=== PATIENT | female | born 1935 | race Caucasian/White ===

== ENCOUNTER 2017-07-06 22:27 | Inpatient (IN) | payer OTHER ==
[~2017-07-06] VITALS: Ht 152.4 cm; Wt 68.0 kg
[~2017-07-06 22:27] MED LIST: ANTI-FUNGAL141 GM TP; Erythromycin Ophth O RIGHT EYE; LITE COAT ASPI325 M1 PO; LIVALO1 MG PO; Levaquin PO; SYNTHROID88 MCG PO; predniSONE PO
[2017-07-06 23:39] LABS: INTER. NORMALIZED RATIO 1.1; PROTHROMBIN TIME 11.8 SEC (10.2-12.9)
[2017-07-06 23:42] LABS: PTT 25.4 SEC (25-37)
[2017-07-07 00:11] LABS: HEMATOCRIT 33.6 % (36.0-46.0); MCH 29.3 PG (29.0-34.0); MCV 88.7 FL (83-99); MEAN PLAT.VOLUME 11.3 uM^3 (9.5-12.4); PLATELET COUNT 167 K/uL (156-360); RBC DIS.WIDTH-CV 14.8 % (11.8-14.6); RED BLOOD COUNT 3.79 M/uL (3.80-5.20)
[2017-07-07 00:18] LABS: CHLORIDE 108 mEq/L (99-109); POTASSIUM 3.7 mEq/L (3.7-5.4); SODIUM 138 mEq/L (136-147)
[2017-07-07 00:20] LABS: GLUCOSE 167 mg/dL (70-99)
[2017-07-07 00:22] LABS: ANION GAP 10 MEQ/L (2-14)
[2017-07-07 00:24] LABS: GFR ESTIMATE (CALCULATED) > 59 mL/min/
[2017-07-07 00:25] LABS: UREA NITROGEN (BUN) 14 mg/dL (9-23)
[2017-07-07] MEDS ORDERED: PROLIA60 MG/1 ML SC (01:08)
[2017-07-07 04:13] VITALS: BP 186/83
[2017-07-07 09:01] VITALS: BP 163/79
[2017-07-07 12:32] VITALS: BP 162/79
[2017-07-07 19:30] VITALS: BP 142/65
[2017-07-07 19:30] LABS: TROP-I INTERPRETATION NEGATIVE; TROPONIN-I 0.02 ng/mL (0.0-0.30)
[2017-07-07 23:38] VITALS: BP 135/79
[2017-07-08 03:34] VITALS: BP 151/70
[2017-07-08 07:01] LABS: INTER. NORMALIZED RATIO 1.3
[2017-07-08 07:22] LABS: ANION GAP 10 MEQ/L (2-14); CHLORIDE 109 MEQ/L (99-109); GFR ESTIMATE (CALCULATED) > 59 mL/min/; GLUCOSE 135 mg/dL (70-99); POTASSIUM 3.8 MEQ/L (3.7-5.4); SAMPLE HEMOLYSIS CHECK 0; SAMPLE ICTERIC CHECK 0; SAMPLE LIPEMIA CHECK 0; SODIUM 142 MEQ/L (136-147); UREA NITROGEN (BUN) 11 mg/dL (9-23)
[2017-07-08 07:24] LABS: TROP-I INTERPRETATION NEGATIVE; TROPONIN-I 0.02 ng/mL (0.0-0.30)
[2017-07-08 07:46] VITALS: BP 177/79
[2017-07-08 07:49] LABS: EOSINOPHIL (%) 0.7 % (0-5); HEMATOCRIT 29.2 % (36.0-46.0); IMMATURE GRANULOCYTE (%) 0.7 % (0.0-0.7); INSTRUMENT ABS NEUTROPHIL CT 2.5 K/uL; LYMPHOCYTE COUNT 0.7 K/uL (1.0-2.8); MCH 30.8 PG (29.0-34.0); MCHC 32.9 G/DL (30.0-36.0); MEAN PLAT.VOLUME 12.3 uM^3 (9.5-12.4); MONOCYTE COUNT 0.9 K/uL (0-0.8); NEUTROPHIL (%) 59.9 % (45-76); NEUTROPHIL COUNT 2.5 K/uL (1.8-6.4); PLATELET COUNT 127 K/uL (156-360); RBC DIS.WIDTH-CV 15.2 % (11.8-14.6); RBC DIS.WIDTH-SD 51.6 % (39-53); RED BLOOD COUNT 3.12 M/uL (3.80-5.20); WHITE BLOOD COUNT 4.1 K/uL (4.1-10.2)
[2017-07-08 07:58] LABS: MCV 93.6 FL (83-99)
[2017-07-08 11:04] VITALS: BP 168/90
[2017-07-08 16:05] VITALS: BP 166/75
[2017-07-08 19:48] VITALS: BP 184/80
[2017-07-08 23:14] VITALS: BP 140/65
[2017-07-09 04:09] VITALS: BP 153/70
[2017-07-09 06:55] LABS: HEMATOCRIT 29.5 % (36.0-46.0); MCH 29.6 PG (29.0-34.0); MCHC 32.9 G/DL (30.0-36.0); MCV 89.9 FL (83-99); MEAN PLAT.VOLUME 12.2 uM^3 (9.5-12.4); PLATELET COUNT 137 K/uL (156-360); RBC DIS.WIDTH-CV 14.8 % (11.8-14.6); RBC DIS.WIDTH-SD 49.1 % (39-53); RED BLOOD COUNT 3.28 M/uL (3.80-5.20)
[2017-07-09 07:17] LABS: ANION GAP 12 MEQ/L (2-14); CHLORIDE 103 MEQ/L (99-109); GFR ESTIMATE (CALCULATED) > 59 mL/min/; GLUCOSE 158 mg/dL (70-99); POTASSIUM 3.4 MEQ/L (3.7-5.4); SAMPLE HEMOLYSIS CHECK 0; SAMPLE ICTERIC CHECK 0; SAMPLE LIPEMIA CHECK 0; SODIUM 139 MEQ/L (136-147); UREA NITROGEN (BUN) 9 mg/dL (9-23)
[2017-07-09 07:36] LABS: ABS NEUTROPHIL COUNT 2.4; ATYPICAL LYMPHOCYTE 1.8 %; BAND NEUTROPHILS 0.9 % (0-8.0); BASOPHILS 0.9 %; EOSINOPHIL ABS CT 0; EOSINOPHILS 0.9 % (0-5.0); INSTRUMENT ABS NEUTROPHIL CT 1.9 K/uL; LYMPHOCYTES 14.9 % (15.0-45.0); NUCLEATED RBC'S 0.9; PLAT.SUFFICIENCY DECREASED; SEG.NEUTROPHILS 59.6 % (46.0-76.0); SMUDGE CELLS 3.5; TEAR DROP CELLS 1+
[2017-07-09 08:07] VITALS: BP 125/64
[2017-07-09 12:11] VITALS: BP 116/54
[2017-07-09 17:22] VITALS: BP 134/59
[2017-07-09 19:12] VITALS: BP 139/64
[2017-07-09 23:21] VITALS: BP 164/84
[2017-07-10 03:31] VITALS: BP 138/78
[2017-07-10 07:48] VITALS: BP 157/69
[2017-07-10] MEDS ORDERED: TRAMADOL HCL50 MG PO (14:57)
[2017-07-10] MEDS ORDERED: DILTIAZEM 24HR180 MG PO (15:02)
[2017-07-10] MEDS ORDERED: XARELTO15 MG PO (15:02)
[2017-07-10 15:37] VITALS: BP 118/59
[2017-07-10] MEDS ORDERED: XARELTO10 MG PO (15:38)
== END 2017-07-10 17:59 | DRG 482 ==
LOC: EME → EDBD 22:27 → EDOF 07-07 02:43 → 3EAST 07-07 02:43 → ENRESERV 07-07 02:51 → 3EAST 07-07 04:02
PROVIDERS: Emergency Medicine; Family Medicine; Orthopaedic Surgery
PROC: 0QS734Z Reposition Left Upper Femur with Internal Fixation Device, Percutaneous Approach (ICD-10-PCS; principal; 2017-07-07)
DX: S72.142A Displaced intertrochanteric fracture of left femur, initial encounter for closed fracture (principal); W01.0XXA Fall on same level from slipping, tripping and stumbling without subsequent striking against object, initial encounter; I48.91 Unspecified atrial fibrillation; E87.6 Hypokalemia; I10 Essential (primary) hypertension; E78.5 Hyperlipidemia, unspecified; R73.9 Hyperglycemia, unspecified; E03.9 Hypothyroidism, unspecified; J45.909 Unspecified asthma, uncomplicated; M81.0 Age-related osteoporosis without current pathological fracture; Y92.008 Other place in unspecified non-institutional (private) residence as the place of occurrence of the external cause; Z86.73 Personal history of transient ischemic attack (TIA), and cerebral infarction without residual deficits; Z90.710 Acquired absence of both cervix and uterus; Z79.82 Long term (current) use of aspirin
CPT/HCPCS: 71010; 73502; 73552; 76000; 80048; 80048 91; 84484; 85025; 85027; 85610; 85730; 86850; 86900; 86901; 93005; 93306; 94799; 97530 GO; 97530 GP; 99281; 99285; C1713; J0690; J1885; J2250; J2405; J3010; J7030

== ENCOUNTER 2017-11-27 08:11 | Inpatient (IN) | payer OTHER ==
[~2017-11-27] VITALS: Ht 157.5 cm; Wt 63.3 kg
[~2017-11-27 08:11] MED LIST changes: +ASPIRIN EC325 MG PO; +DILTIAZEM 24HR180 MG PO; -LITE COAT ASPI325 M1 PO; +PROLIA60 MG/1 ML SC; +SYNTHROID100 MCG PO; -SYNTHROID88 MCG PO; +TRAMADOL HCL50 MG PO; +XARELTO10 MG PO; +XARELTO15 MG PO
[2017-11-27 08:56] LABS: BASOPHIL (%) 0.4 % (0-1); EOSINOPHIL (%) 1.2 % (0-5); HEMATOCRIT 35.2 % (36.0-46.0); HEMOGLOBIN 11.7 G/DL (11.9-15.5); IMMATURE GRANULOCYTE (%) 0.8 % (0.0-0.7); LYMPHOCYTE (%) 38.5 % (15-42); MCH 29.7 PG (29.0-34.0); MCHC 33.2 G/DL (30.0-36.0); MCV 89.3 FL (83-99); MONOCYTE (%) 24.9 % (3-12); MONOCYTE COUNT 0.6 K/uL (0-0.8); NEUTROPHIL (%) 34.2 % (45-76); NEUTROPHIL COUNT 0.9 K/uL (1.8-6.4); PLATELET COUNT 180 K/uL (156-360); RBC DIS.WIDTH-CV 14.8 % (11.8-14.6); RBC DIS.WIDTH-SD 48.3 % (39-53); RED BLOOD COUNT 3.94 M/uL (3.80-5.20); WHITE BLOOD COUNT 2.6 K/uL (4.1-10.2)
[2017-11-27 09:07] LABS: CHLORIDE 104 mEq/L (99-109); SODIUM 140 mEq/L (136-147)
[2017-11-27 09:09] LABS: GLUCOSE 139 mg/dL (70-99)
[2017-11-27 09:13] LABS: CREATININE 0.7 mg/dL (0.6-1.3); GFR ESTIMATE (CALCULATED) > 59 mL/min/; UREA NITROGEN (BUN) 12 mg/dL (9-23)
[2017-11-27] MEDS ORDERED: ALEVE220 MG PO (15:40)
[2017-11-27] MEDS ORDERED: ALLEGRA ALLERG180 MG PO (15:40)
[2017-11-27 22:01] VITALS: BP 150/71
[2017-11-27 23:34] VITALS: BP 154/66
[2017-11-28 04:58] VITALS: BP 187/74
[2017-11-28 05:30] VITALS: BP 164/76
[2017-11-28 08:05] VITALS: BP 130/58
[2017-11-28 13:36] LABS: HEMATOCRIT 34.2 % (36.0-46.0); HEMOGLOBIN 11.2 G/DL (11.9-15.5); MCH 29.5 PG (29.0-34.0); MCHC 32.7 G/DL (30.0-36.0); RBC DIS.WIDTH-CV 14.8 % (11.8-14.6); RBC DIS.WIDTH-SD 49.5 % (39-53); WHITE BLOOD COUNT 8.5 K/uL (4.1-10.2)
[2017-11-28 14:08] LABS: PLAT.SUFFICIENCY ADEQUATE; PLATELET COUNT 218 K/uL (156-360)
[2017-11-28 15:35] VITALS: BP 131/79
[2017-11-28 19:25] VITALS: BP 136/63
[2017-11-28 23:52] VITALS: BP 132/63
[2017-11-29 04:18] VITALS: BP 139/64
[2017-11-29 06:30] LABS: CHLORIDE 103 MEQ/L (99-109); CREATININE 0.7 MG/DL (0.6-1.3); GFR ESTIMATE (CALCULATED) > 59 mL/min/; POTASSIUM 3.9 MEQ/L (3.7-5.4); SODIUM 137 MEQ/L (136-147); UREA NITROGEN (BUN) 15 mg/dL (9-23)
[2017-11-29 06:40] LABS: GLUCOSE 266 mg/dL (70-99)
[2017-11-29 07:23] VITALS: BP 129/60
[2017-11-29 11:31] VITALS: BP 120/58
[2017-11-29 14:23] LABS: HEMATOCRIT 27.6 % (36.0-46.0); HEMOGLOBIN 9.4 G/DL (11.9-15.5); MCV 87.6 FL (83-99)
[2017-11-29 19:17] VITALS: BP 131/61
[2017-11-29 23:18] VITALS: BP 154/67
[2017-11-30 05:51] LABS: BASOPHIL (%) 0 % (0-1); EOSINOPHIL (%) 0 % (0-5); HEMATOCRIT 23.9 % (36.0-46.0); HEMOGLOBIN 8.1 G/DL (11.9-15.5); IMMATURE GRANULOCYTE (%) 1.5 % (0.0-0.7); LYMPHOCYTE (%) 13.5 % (15-42); MCH 29.3 PG (29.0-34.0); MCHC 33.9 G/DL (30.0-36.0); MCV 86.6 FL (83-99); MONOCYTE (%) 24.8 % (3-12); MONOCYTE COUNT 1.9 K/uL (0-0.8); NEUTROPHIL (%) 60.2 % (45-76); NEUTROPHIL COUNT 4.5 K/uL (1.8-6.4); NRBC (%) 0.3 /100 WBC (0-0); PLATELET COUNT 178 K/uL (156-360); RBC DIS.WIDTH-CV 14.9 % (11.8-14.6); RBC DIS.WIDTH-SD 47.3 % (39-53); WHITE BLOOD COUNT 7.5 K/uL (4.1-10.2)
[2017-11-30 06:02] LABS: RED BLOOD COUNT 2.76 M/uL (3.80-5.20)
[2017-11-30 06:13] LABS: CHLORIDE 103 MEQ/L (99-109); CREATININE 0.7 MG/DL (0.6-1.3); GFR ESTIMATE (CALCULATED) > 59 mL/min/; GLUCOSE 188 mg/dL (70-99); POTASSIUM 4.1 MEQ/L (3.7-5.4); SODIUM 138 MEQ/L (136-147); UREA NITROGEN (BUN) 17 mg/dL (9-23)
[2017-11-30 07:59] VITALS: BP 135/61
[2017-11-30 11:55] VITALS: BP 124/60
[2017-11-30] MEDS ORDERED: DILTIAZEM 24HR240 MG PO (12:44)
[2017-11-30] MEDS ORDERED: XARELTO15 MG PO (12:46)
[2017-11-30] MEDS ORDERED: OYSTER SHELL 51 EACH PO (12:47)
== END 2017-11-30 14:31 | DRG 470 ==
LOC: EME 08:11 → EDOF 15:00 → 3EAST 15:00 → ENRESERV 15:34 → 3EAST 21:26
PROVIDERS: Emergency Medicine; Family Medicine; Orthopaedic Surgery
PROC: 0SRB02A Replacement of Left Hip Joint with Metal on Polyethylene Synthetic Substitute, Uncemented, Open Approach (ICD-10-PCS; principal; 2017-11-27)
DX: S72.142K Displaced intertrochanteric fracture of left femur, subsequent encounter for closed fracture with nonunion (principal); I48.2 Chronic atrial fibrillation; I10 Essential (primary) hypertension; R73.9 Hyperglycemia, unspecified; E78.5 Hyperlipidemia, unspecified; M81.0 Age-related osteoporosis without current pathological fracture; E83.51 Hypocalcemia; E03.9 Hypothyroidism, unspecified; K59.00 Constipation, unspecified; D64.9 Anemia, unspecified; Z85.850 Personal history of malignant neoplasm of thyroid; J45.909 Unspecified asthma, uncomplicated
CPT/HCPCS: 71045; 73501; 73502; 73552; 80048; 82330; 82948; 85014; 85018; 85025; 85027; 85652; 86140; 86850; 86900; 86901; 93005; 99281; 99285; C1713; C1776; J0330; J0690; J1100; J1170; J1650; J1815; J2405; J3010

== ENCOUNTER → 2017-12-20 | Outpatient (CLI) | payer OTHER ==
[~2017-12-20] MED LIST changes: +ALEVE220 MG PO; +ALLEGRA ALLERG180 MG PO; +DILTIAZEM 24HR240 MG PO; +OYSTER SHELL 51 EACH PO
== END | disposition home or self-care (01) ==
LOC: RAD 08:29
DX: N28.89 Other specified disorders of kidney and ureter (principal); M47.899 Other spondylosis, site unspecified; I70.90 Unspecified atherosclerosis; R93.5 Abnormal findings on diagnostic imaging of other abdominal regions, including retroperitoneum; Z87.19 Personal history of other diseases of the digestive system
CPT/HCPCS: 74160

== ENCOUNTER 2018-03-23 20:47 | Inpatient (IN) | payer OTHER ==
[~2018-03-23] VITALS: Ht 152.4 cm; Wt 60.0 kg
[~2018-03-23 20:47] MED LIST changes: +XARELTO20 MG PO
[2018-03-24] MEDS ORDERED: CIPRO250 MG PO (06:01)
[2018-03-24 06:21] VITALS: BP 132/68
[2018-03-24] MEDS ORDERED: DOCUSATE SODIU100 MG PO (12:04)
[2018-03-24] MEDS ORDERED: ENDOCET 5-3251 EACH PO (12:04)
[2018-03-24] MEDS ORDERED: SENNA LAX8.6 MG PO (12:04)
[2018-03-24 14:04] LABS: HEMATOCRIT 32.4 % (36.0-46.0); HEMOGLOBIN 10.1 G/DL (11.9-15.5); MCHC 31.2 G/DL (30.0-36.0); MCV 83.3 FL (83-99); PLATELET COUNT 268 K/uL (156-360); RBC DIS.WIDTH-CV 16.7 % (11.8-14.6); RBC DIS.WIDTH-SD 50.6 % (39-53); RED BLOOD COUNT 3.89 M/uL (3.80-5.20); WHITE BLOOD COUNT 4.8 K/uL (4.1-10.2)
[2018-03-24 14:39] LABS: CHLORIDE 102 MEQ/L (99-109); CREATININE 0.9 MG/DL (0.6-1.3); GFR ESTIMATE (CALCULATED) > 59 mL/min/; GLUCOSE 227 mg/dL (70-99); POTASSIUM 4.7 MEQ/L (3.7-5.4); SODIUM 136 MEQ/L (136-147); UREA NITROGEN (BUN) 16 mg/dL (9-23)
[2018-03-24 15:02] VITALS: BP 175/80
[2018-03-24 21:23] VITALS: BP 142/69
[2018-03-25 04:33] VITALS: BP 149/66
[2018-03-25 05:52] LABS: HEMOGLOBIN 10.7 G/DL (11.9-15.5); MCH 25.7 PG (29.0-34.0); MCHC 31.5 G/DL (30.0-36.0); MCV 81.5 FL (83-99); NRBC (%) 0.3 /100 WBC (0-0); RBC DIS.WIDTH-CV 16.6 % (11.8-14.6); RBC DIS.WIDTH-SD 49.3 % (39-53); RED BLOOD COUNT 4.17 M/uL (3.80-5.20); WHITE BLOOD COUNT 7.2 K/uL (4.1-10.2)
[2018-03-25 06:19] LABS: CHLORIDE 98 MEQ/L (99-109); GFR ESTIMATE (CALCULATED) 57 mL/min/; GLUCOSE 168 mg/dL (70-99); POTASSIUM 4.7 MEQ/L (3.7-5.4); SODIUM 135 MEQ/L (136-147); UREA NITROGEN (BUN) 15 mg/dL (9-23)
[2018-03-25 06:49] LABS: PLATELET CLUMPS PRESENT - PLATELET COUNT APPEARS ADQ.; PLATELET COUNT UNABLE TO REPORT K/uL (156-360)
[2018-03-25 07:39] VITALS: BP 134/62
[2018-03-25 11:38] VITALS: BP 136/62
[2018-03-25 15:24] VITALS: BP 138/62
[2018-03-25 20:49] VITALS: BP 147/67
[2018-03-25 21:37] VITALS: BP 138/78
[2018-03-26 00:33] VITALS: BP 160/72
[2018-03-26 04:01] VITALS: BP 143/65
[2018-03-26 06:01] LABS: MCH 25.8 PG (29.0-34.0); MCHC 32.1 G/DL (30.0-36.0); MCV 80.2 FL (83-99); PLATELET COUNT 240 K/uL (156-360); RBC DIS.WIDTH-CV 16.6 % (11.8-14.6); RBC DIS.WIDTH-SD 48.4 % (39-53); RED BLOOD COUNT 3.49 M/uL (3.80-5.20)
[2018-03-26 06:55] LABS: CHLORIDE 103 MEQ/L (99-109); GFR ESTIMATE (CALCULATED) 57 mL/min/; POTASSIUM 4.5 MEQ/L (3.7-5.4); SODIUM 141 MEQ/L (136-147); UREA NITROGEN (BUN) 13 mg/dL (9-23)
[2018-03-26 06:59] LABS: GLUCOSE 117 mg/dL (70-99)
[2018-03-26 07:16] VITALS: BP 152/70
[2018-03-26 10:55] VITALS: BP 139/63
[2018-03-26 16:32] VITALS: BP 138/68
[2018-03-26 23:14] VITALS: BP 154/67
[2018-03-27 06:09] LABS: HEMATOCRIT 26.1 % (36.0-46.0); HEMOGLOBIN 8.4 G/DL (11.9-15.5); MCH 25.8 PG (29.0-34.0); MCHC 32.2 G/DL (30.0-36.0); MCV 80.1 FL (83-99); NRBC (%) 0.6 /100 WBC (0-0); PLATELET COUNT 244 K/uL (156-360); RBC DIS.WIDTH-CV 16.6 % (11.8-14.6); RBC DIS.WIDTH-SD 48.2 % (39-53); RED BLOOD COUNT 3.26 M/uL (3.80-5.20); WHITE BLOOD COUNT 5.4 K/uL (4.1-10.2)
[2018-03-27 06:34] LABS: CHLORIDE 102 MEQ/L (99-109); GFR ESTIMATE (CALCULATED) 57 mL/min/; GLUCOSE 136 mg/dL (70-99); SODIUM 138 MEQ/L (136-147); UREA NITROGEN (BUN) 13 mg/dL (9-23)
[2018-03-27 06:50] VITALS: BP 129/58
[2018-03-27 15:10] VITALS: BP 148/70
[2018-03-27 23:25] VITALS: BP 136/62
[2018-03-28 06:32] LABS: HEMATOCRIT 26.2 % (36.0-46.0); HEMOGLOBIN 8.3 G/DL (11.9-15.5); MCH 25.6 PG (29.0-34.0); MCHC 31.7 G/DL (30.0-36.0); MCV 80.9 FL (83-99); NRBC (%) 0.9 /100 WBC (0-0); PLATELET COUNT 272 K/uL (156-360); RBC DIS.WIDTH-CV 16.9 % (11.8-14.6); RBC DIS.WIDTH-SD 49.5 % (39-53); RED BLOOD COUNT 3.24 M/uL (3.80-5.20); WHITE BLOOD COUNT 4.4 K/uL (4.1-10.2)
[2018-03-28 06:40] VITALS: BP 146/65
[2018-03-28 07:12] LABS: CHLORIDE 103 MEQ/L (99-109); CREATININE 1.1 MG/DL (0.6-1.3); GFR ESTIMATE (CALCULATED) 51 mL/min/; POTASSIUM 4.4 MEQ/L (3.7-5.4); SODIUM 139 MEQ/L (136-147); UREA NITROGEN (BUN) 18 mg/dL (9-23)
[2018-03-28 07:13] LABS: GLUCOSE 101 mg/dL (70-99)
[2018-03-28 14:40] VITALS: BP 144/63
[2018-03-28 23:53] VITALS: BP 154/75
[2018-03-29 06:50] VITALS: BP 150/70
== END 2018-03-29 12:14 | disposition home or self-care (01) | DRG 658 ==
LOC: ENRESERV 20:47 → 2SOUTH 03-24 05:36 → ENRESERV 03-24 08:51 → 2SOUTH 03-24 10:05 → 5EAST 03-24 14:50 → SDC 03-24 15:20 → EDSTATUS 03-24 15:41 → 2SOUTH 03-24 15:43 → 5EAST 03-29 12:14
PROVIDERS: Urology
DX: C64.2 Malignant neoplasm of left kidney, except renal pelvis (principal); E11.9 Type 2 diabetes mellitus without complications; E03.9 Hypothyroidism, unspecified; M81.0 Age-related osteoporosis without current pathological fracture; E78.5 Hyperlipidemia, unspecified; D64.9 Anemia, unspecified; I48.0 Paroxysmal atrial fibrillation; Z96.642 Presence of left artificial hip joint; Z79.01 Long term (current) use of anticoagulants; R00.0 Tachycardia, unspecified; Z23 Encounter for immunization
CPT/HCPCS: 80048; 82150 91; 82948; 85027; 88305; 88307; 90732; 93005; 94799; G0009; J0690; J1170; J1644; J1815; J1885; J2405; J2765; J3010; J7120

== ENCOUNTER 2018-06-02 11:08 | Emergency (ER) | payer OTHER ==
[~2018-06-02] VITALS: Ht 152.4 cm; Wt 49.7 kg
[~2018-06-02 11:08] MED LIST changes: +CIPRO250 MG PO; +DOCUSATE SODIU100 MG PO; +ENDOCET 5-3251 EACH PO; +SENNA LAX8.6 MG PO
[2018-06-02 14:30] VITALS: BP 154/80
[2018-06-03] MEDS ORDERED: ULTRAM50 MG PO (14:05)
== END 2018-06-02 16:34 | disposition home or self-care (01) ==
LOC: EME 11:08
DX: K59.00 Constipation, unspecified (principal); I10 Essential (primary) hypertension; E78.5 Hyperlipidemia, unspecified; J45.909 Unspecified asthma, uncomplicated; Z90.5 Acquired absence of kidney; Z96.649 Presence of unspecified artificial hip joint; Z88.5 Allergy status to narcotic agent; Z88.2 Allergy status to sulfonamides; Z90.49 Acquired absence of other specified parts of digestive tract
CPT/HCPCS: 81003; 99281; 99284

== ENCOUNTER 2018-06-03 04:34 | Observation (INO) | payer OTHER ==
[~2018-06-03] VITALS: Ht 154.9 cm; Wt 60.5 kg
[2018-06-03 05:18] LABS: HEMATOCRIT 29.4 % (36.0-46.0); HEMOGLOBIN 9.8 G/DL (11.9-15.5); MCH 25.3 PG (29.0-34.0); MCHC 33.3 G/DL (30.0-36.0); MCV 75.8 FL (83-99); NRBC (%) 0.3 /100 WBC (0-0); PLATELET COUNT 478 K/uL (156-360); RBC DIS.WIDTH-CV 17.9 % (11.8-14.6); RED BLOOD COUNT 3.88 M/uL (3.80-5.20); WHITE BLOOD COUNT 7.3 K/uL (4.1-10.2)
[2018-06-03 05:29] LABS: ALBUMIN 3.5 g/dL (3.2-4.8); CHLORIDE 104 mEq/L (99-109); POTASSIUM 4.1 mEq/L (3.7-5.4); SODIUM 137 mEq/L (136-147)
[2018-06-03 05:31] LABS: GLUCOSE 187 mg/dL (70-99)
[2018-06-03 05:32] LABS: TOTAL PROTEIN 7.4 g/dL (6.4-8.3)
[2018-06-03 05:33] LABS: TOTAL BILIRUBIN 1.2 mg/dL (0.0-1.0)
[2018-06-03 05:35] LABS: ALKALINE PHOSPHATASE 108 IU/L (3-129); CREATININE 0.9 mg/dL (0.6-1.3); GFR ESTIMATE (CALCULATED) > 59 mL/min/
[2018-06-03 05:36] LABS: UREA NITROGEN (BUN) 25 mg/dL (9-23)
[2018-06-03 05:37] LABS: AST (GOT) 15 IU/L (2-34)
[2018-06-03 05:38] LABS: ALT (GPT) 9 IU/L (3-49)
[2018-06-03 05:44] LABS: TROP-I INTERPRETATION NEGATIVE; TROPONIN-I < 0.01 ng/mL (0.0-0.30)
[2018-06-03 06:48] LABS: LIPASE 30 U/L (1.0-51.0)
[2018-06-03 08:01] LABS: APPEARANCE CLEAR ((CLEAR)); BILIRUBIN NEGATIVE; BLOOD NEGATIVE; COLOR YELLOW ((YELLOW)); GLUCOSE (STRIP) NEGATIVE; KETONES 20; LEUKOCYTES NEGATIVE; NITRITE NEGATIVE; PROTEIN (STRIP) 30; SPECIFIC GRAVITY 1.018 (1.000-1.030); UCUL ADDED? NO
[2018-06-03 12:00] VITALS: BP 131/87
[2018-06-03] MEDS ORDERED: ULTRAM50 MG PO (14:05)
[2018-06-03 19:11] VITALS: BP 140/66
[2018-06-03 23:48] VITALS: BP 142/68
[2018-06-04 03:33] VITALS: BP 124/61
[2018-06-04 07:41] VITALS: BP 120/60
[2018-06-04 11:31] VITALS: BP 139/71
[2018-06-04 12:35] LABS: HEMOGLOBIN A1c (GLYCOHEMOGLOB) 6.8 % (Below 5.7)
[2018-06-04] MEDS ORDERED: XARELTO15 MG PO (15:14)
[2018-06-04 15:18] VITALS: BP 143/61
[2018-06-04 19:26] VITALS: BP 134/64
[2018-06-04 23:33] VITALS: BP 150/68
[2018-06-05 03:05] LABS: APPEARANCE SL.HAZY ((CLEAR)); BILIRUBIN NEGATIVE; BLOOD LARGE; COLOR YELLOW ((YELLOW)); GLUCOSE (STRIP) NEGATIVE; KETONES NEGATIVE; LEUKOCYTES NEGATIVE; NITRITE POSITIVE; PROTEIN (STRIP) 100; SPECIFIC GRAVITY 1.011 (1.000-1.030); UROBILINOGEN 0.2 MG/DL (0.2-1.0)
[2018-06-05 03:09] LABS: BACTERIA RARE /HPF; EPITHELIAL CELLS NONE SEEN /HPF; MUCUS NONE SEEN /LPF; RED BLOOD CELLS TNTC /HPF (0-5); UCUL ADDED? YES; WHITE BLOOD CELLS NONE SEEN /HPF (0-5)
[2018-06-05 03:58] VITALS: BP 124/60
[2018-06-05 07:51] VITALS: BP 123/59
[2018-06-05 09:49] LABS: BASOPHIL (%) 0.4 % (0-1); EOSINOPHIL (%) 3.7 % (0-5); EOSINOPHIL COUNT 0.2 K/uL (0-0.3); HEMATOCRIT 27.3 % (36.0-46.0); HEMOGLOBIN 8.9 G/DL (11.9-15.5); IMMATURE GRANULOCYTE (%) 0.9 % (0.0-0.7); LYMPHOCYTE COUNT 1.8 K/uL (1.0-2.8); MCH 24.9 PG (29.0-34.0); MCHC 32.6 G/DL (30.0-36.0); MCV 76.3 FL (83-99); MONOCYTE (%) 15.6 % (3-12); MONOCYTE COUNT 0.9 K/uL (0-0.8); NEUTROPHIL (%) 46.4 % (45-76); NEUTROPHIL COUNT 2.5 K/uL (1.8-6.4); NRBC (%) 0.4 /100 WBC (0-0); PLATELET COUNT 461 K/uL (156-360); RBC DIS.WIDTH-CV 18.3 % (11.8-14.6); RED BLOOD COUNT 3.58 M/uL (3.80-5.20); WHITE BLOOD COUNT 5.5 K/uL (4.1-10.2)
[2018-06-05 10:13] LABS: CHLORIDE 103 MEQ/L (99-109); CREATININE 0.8 MG/DL (0.6-1.3); GFR ESTIMATE (CALCULATED) > 59 mL/min/; GLUCOSE 149 mg/dL (70-99); POTASSIUM 4.5 MEQ/L (3.7-5.4); SODIUM 135 MEQ/L (136-147); UREA NITROGEN (BUN) 16 mg/dL (9-23)
[2018-06-05 11:17] VITALS: BP 130/70
[2018-06-05] MEDS ORDERED: CEFTIN250 MG PO (12:53)
== END 2018-06-05 16:56 | disposition home or self-care (01) ==
LOC: EME 04:34 → EDOF 07:21 → 4SOUTH 07:21 → EDOF 07:21 → ENRESERV 07:23 → 4SOUTH 08:51 → CANRESERV 08:54 → ENRESERV 08:54 → 4SOUTH 09:02
PROVIDERS: Emergency Medicine; Hospitalist; Physician Assistant
DX: G89.11 Acute pain due to trauma (principal); M48.56XA Collapsed vertebra, not elsewhere classified, lumbar region, initial encounter for fracture; M48.061 Spinal stenosis, lumbar region without neurogenic claudication; N39.0 Urinary tract infection, site not specified; Z60.2 Problems related to living alone; Z90.5 Acquired absence of kidney; Z90.81 Acquired absence of spleen; Z90.411 Acquired partial absence of pancreas; Z98.890 Other specified postprocedural states; M47.816 Spondylosis without myelopathy or radiculopathy, lumbar region; R29.6 Repeated falls; E03.9 Hypothyroidism, unspecified; I48.2 Chronic atrial fibrillation; I10 Essential (primary) hypertension; E11.65 Type 2 diabetes mellitus with hyperglycemia; E78.5 Hyperlipidemia, unspecified; M81.0 Age-related osteoporosis without current pathological fracture; Z96.642 Presence of left artificial hip joint; Z90.49 Acquired absence of other specified parts of digestive tract; Z90.710 Acquired absence of both cervix and uterus; Z88.2 Allergy status to sulfonamides; Z88.5 Allergy status to narcotic agent; D64.9 Anemia, unspecified; K59.00 Constipation, unspecified; N28.89 Other specified disorders of kidney and ureter; W18.30XA Fall on same level, unspecified, initial encounter; Y92.009 Unspecified place in unspecified non-institutional (private) residence as the place of occurrence of the external cause
CPT/HCPCS: 70450; 72131; 72148; 72192; 80048; 80053; 81003; 82948; 83036; 83690; 84484; 85025; 85027; 87077; 87086; 87186; 93005; 97530 GO; 99281; 99285; G0378; G8978 GP CJ; G8979 GP CI; G8980 CJ; G8987 GO CJ; G8988 CI; G8989 GO CI; J0696; J1815; J2405; J7030; J7120